=== PATIENT | male | born 1995 | race Asian ===

== ENCOUNTER 2018-04-10 09:50 | Emergency (ER) | payer SELFPAY ==
[~2018-04-10] VITALS: Ht 170.2 cm; Wt 81.8 kg
[2018-04-10 11:13] VITALS: BP 119/68
== END 2018-04-10 11:18 | disposition home or self-care (01) ==
LOC: EMS 09:51
DX: L30.9 Dermatitis, unspecified (principal); J45.909 Unspecified asthma, uncomplicated

== ENCOUNTER 2018-04-11 08:42 | Emergency (ER) | payer SELFPAY ==
[~2018-04-11] VITALS: Ht 170.2 cm; Wt 68.2 kg
[2018-04-11 08:48] VITALS: BP 148/74
== END 2018-04-11 10:41 | disposition home or self-care (01) ==
LOC: EMS 08:43
DX: L30.9 Dermatitis, unspecified (principal); J45.909 Unspecified asthma, uncomplicated

== ENCOUNTER 2018-06-04 12:31 | Emergency (ER) | payer SELFPAY ==
[~2018-06-04] VITALS: Ht 170.2 cm; Wt 77.3 kg
[2018-06-04 13:30] VITALS: BP 128/88
[2018-06-04] MEDS ORDERED: PredniSONE 20 MG TABLET PO ONE (13:30)
== END 2018-06-04 13:45 | disposition home or self-care (01) ==
LOC: EMS 12:32
DX: L30.9 Dermatitis, unspecified (principal); R03.0 Elevated blood-pressure reading, without diagnosis of hypertension; J45.909 Unspecified asthma, uncomplicated
CPT/HCPCS: 99283; J7512

== ENCOUNTER 2018-07-13 09:35 | Emergency (ER) | payer SELFPAY ==
[~2018-07-13] VITALS: Ht 170.2 cm; Wt 92.5 kg
[2018-07-13 11:13] VITALS: BP 121/93
[2018-07-13] MEDS ORDERED: DEXAMETHASONE SOD PHOS 4 MG/ML 5 ML VIAL IM ONE (11:30)
== END 2018-07-13 11:36 | disposition home or self-care (01) ==
LOC: EMS 09:38
DX: H10.9 Unspecified conjunctivitis (principal); L30.9 Dermatitis, unspecified; J45.909 Unspecified asthma, uncomplicated; F17.210 Nicotine dependence, cigarettes, uncomplicated
CPT/HCPCS: 96372; 99283; J1100

== ENCOUNTER 2019-06-15 09:11 | Emergency (ER) | payer MEDICAID ==
[~2019-06-15] VITALS: Ht 170.2 cm; Wt 84.1 kg
[2019-06-15 10:32] VITALS: BP 129/81
== END 2019-06-15 11:20 | disposition home or self-care (01) ==
LOC: EMS 09:17
DX: L30.9 Dermatitis, unspecified (principal); F17.210 Nicotine dependence, cigarettes, uncomplicated; J45.909 Unspecified asthma, uncomplicated
CPT/HCPCS: 99406

== ENCOUNTER 2019-12-03 15:37 | Emergency (ER) | payer MEDICAID ==
[~2019-12-03] VITALS: Ht 170.2 cm; Wt 84.1 kg
[2019-12-03] MEDS ORDERED: DEXAMETHASONE SOD PHOS 4 MG/ML 5 ML VIAL IM ONE (16:30)
[2019-12-03 16:40] VITALS: BP 141/84
== END 2019-12-03 16:54 | disposition home or self-care (01) ==
LOC: EMS 15:37
DX: L30.9 Dermatitis, unspecified (principal); J45.909 Unspecified asthma, uncomplicated; F12.90 Cannabis use, unspecified, uncomplicated; F17.210 Nicotine dependence, cigarettes, uncomplicated
CPT/HCPCS: 96372; 99283; J1100

== ENCOUNTER 2020-03-08 13:02 | Emergency (ER) | payer MEDICAID ==
[~2020-03-08] VITALS: Ht 170.2 cm; Wt 81.8 kg
[2020-03-08] MEDS ORDERED: PredniSONE 20 MG TABLET PO ONE (13:45)
[2020-03-08 15:00] VITALS: BP 129/79
== END 2020-03-08 15:18 | disposition home or self-care (01) ==
LOC: EMS 13:05
DX: L30.9 Dermatitis, unspecified (principal); F17.210 Nicotine dependence, cigarettes, uncomplicated; F12.90 Cannabis use, unspecified, uncomplicated
CPT/HCPCS: 99283; J7512

== ENCOUNTER 2020-10-12 04:45 | Emergency (ER) | payer MEDICAID ==
[~2020-10-12] VITALS: Ht 170.2 cm; Wt 86.4 kg
[2020-10-12 04:55] VITALS: BP 124/75
== END 2020-10-12 07:35 | disposition left against medical advice (07) ==
LOC: EMS 04:46
DX: L30.9 Dermatitis, unspecified (principal); Z53.21 Procedure and treatment not carried out due to patient leaving prior to being seen by health care provider

== ENCOUNTER 2020-10-18 01:16 | Emergency (ER) | payer MEDICAID ==
[~2020-10-18] VITALS: Ht 170.2 cm; Wt 86.4 kg
[2020-10-18 01:25] VITALS: BP 121/86
[2020-10-18] MEDS ORDERED: BENZONATATE 100 MG CAPSULE PO ONE (03:30)
[2020-10-18] MEDS ORDERED: PredniSONE 20 MG TABLET PO ONE (03:30)
[2020-10-18] MEDS ORDERED: HYDROCORTISONE 1% 30 GM CREAM TP ONE (03:30)
== END 2020-10-18 03:45 | disposition home or self-care (01) ==
LOC: EMS 01:16
DX: L20.9 Atopic dermatitis, unspecified (principal); J45.909 Unspecified asthma, uncomplicated; F12.90 Cannabis use, unspecified, uncomplicated; Z91.010 Allergy to peanuts; Z91.013 Allergy to seafood
CPT/HCPCS: 99284; J7512

== ENCOUNTER 2021-08-14 17:36 | Emergency (ER) | payer MEDICAID ==
[~2021-08-14] VITALS: Ht 170.2 cm; Wt 77.3 kg
[2021-08-14 17:43] VITALS: BP 116/64
[2021-08-14] MEDS ORDERED: PRED-554 PO (18:27)
[2021-08-14] MEDS ORDERED: HYDR-4527 PO (18:27)
[2021-08-14] MEDS ORDERED: TRI115O TP (18:27)
[2021-08-14] MEDS ORDERED: CEPH-558 PO (18:27)
== END 2021-08-14 19:05 | disposition home or self-care (01) ==
LOC: EMS 17:37
DX: L20.9 Atopic dermatitis, unspecified (principal); J45.909 Unspecified asthma, uncomplicated; F12.90 Cannabis use, unspecified, uncomplicated; Z88.8 Allergy status to other drugs, medicaments and biological substances
CPT/HCPCS: 99281; Z7502

== ENCOUNTER 2021-12-13 11:45 | Emergency (ER) | payer MEDICAID ==
[~2021-12-13] VITALS: Ht 170.2 cm; Wt 81.8 kg
[~2021-12-13 11:45] MED LIST: CEPH-558 PO; HYDR-4527 PO; PRED-554 PO; TRI115O TP
[2021-12-13] MEDS ORDERED: KETOROLAC TROMETHAMINE 30 MG/ML VIAL IVP ONE (12:30)
[2021-12-13] MEDS ORDERED: DiphenhydrAMINE HCL 50 MG/ML VIAL IVP ONE (12:30)
[2021-12-13 12:56] LABS: BASOPHILS % (AUTO) 1.1 % (0.0-2.0); EOSINOPHILS % (AUTO) 0.2 % (1.0-6.0); HEMATOCRIT 46.9 % (41-53); HEMOGLOBIN 15.7 g/dL (13.5-17.5); LYMPHOCYTES % (AUTO) 5.8 % (22.0-44.0); MEAN CORPUSCULAR HEMOGLOBIN 30.3 pg (26.0-34.0); MEAN CORPUSCULAR HGB CONC 33.4 G/dL (31.0-37.0); MEAN CORPUSCULAR VOLUME 91 fL (80-100); MONOCYTES # (AUTO) 1.3 K/uL (0.1-1.0); MONOCYTES % (AUTO) 7.8 % (2.0-9.0); NEUTROPHILS # (AUTO) 14.4 K/uL (1.8-7.7); NEUTROPHILS % (AUTO) 85.1 % (40.0-70.0); PLATELET COUNT (AUTO) 294 K/uL (150-450); RED BLOOD CELL COUNT(AUTO) 5.17 MIL/uL (4.50-5.90); RED CELL DISTRIBUTION WIDTH 12.1 % (11.5-14.5)
[2021-12-13] MEDS ORDERED: IOHEXOL 350 MG/ML 100 ML VIAL ONE (13:00)
[2021-12-13] MEDS ORDERED: SODIUM CHLORIDE 0.9% 100 ML ONE (13:01)
[2021-12-13 13:06] LABS: ANION GAP 6 mmol/L (8-16); CALCIUM, TOTAL 9.5 mg/dL (8.8-10.5); CARBON DIOXIDE 28 mmol/L (22-29); CHLORIDE 99 mmol/L (98-107); GLOMERULAR FILTR. RATE CALC > 60 mL/min (>60); GLUCOSE,RANDOM 98 mg/dL (70-110); POTASSIUM 3.6 mmol/L (3.5-5.1); SODIUM SERUM 133 mmol/L (136-145); UREA NITROGEN, BLOOD 10 mg/dL (7-18)
[2021-12-13 13:11] LABS: ALANINE AMINOTRANSFERASE 54 U/L (12-78); ALBUMIN 4.1 g/dL (3.4-5.0); ALKALINE PHOSPHATASE 78 U/L (46-116); ASPARTATE AMINOTRANSFERASE 23 U/L (15-37); BILIRUBIN,TOTAL 0.9 mg/dL (0.1-1.0); C-REACTIVE PROTEIN QUANT 11.53 mg/dL (0.00-0.30); TOTAL PROTEIN, SERUM 8.5 g/dL (6.4-8.2)
[2021-12-13 14:04] LABS: ERYTHROCYTE SEDIMENTATION RATE 20 MM/HR (0-15)
[2021-12-13] MEDS ORDERED: VANCOMYCIN 1GM/WATER(PEG/NADA) 200 ML IV ONE (14:45)
[2021-12-13] MEDS ORDERED: IBUP-2070 PO (16:06)
[2021-12-13] MEDS ORDERED: CLIN-26 PO (16:06)
[2021-12-13 16:28] VITALS: BP 121/83
== END 2021-12-13 17:35 | disposition home or self-care (01) ==
LOC: EMS 11:48
DX: H60.12 Cellulitis of left external ear (principal); L30.9 Dermatitis, unspecified; Z91.010 Allergy to peanuts; Z91.013 Allergy to seafood
CPT/HCPCS: 99285; 70460; 96365; 96375; 80053; 85025; 85651; 86140; 87040; 36415; 70491; J1200; J1885; Q9967; J7050

== ENCOUNTER 2022-03-31 14:00 | Emergency (ER) | payer MEDICAID ==
[~2022-03-31] VITALS: Ht 170.2 cm; Wt 81.0 kg
[~2022-03-31 14:00] MED LIST changes: +CLIN-26 PO; +IBUP-1492 PO
[2022-03-31 14:11] VITALS: BP 157/92
[2022-03-31] MEDS ORDERED: TRI115O TP (14:36)
== END 2022-03-31 14:54 | disposition still patient (30) ==
LOC: EMS 14:03
DX: Z76.0 Encounter for issue of repeat prescription (principal); H60.542 Acute eczematoid otitis externa, left ear; Z91.010 Allergy to peanuts; Z91.013 Allergy to seafood
CPT/HCPCS: 99283; Z7502

== ENCOUNTER 2022-11-13 14:08 | Emergency (ER) | payer MEDICAID ==
[~2022-11-13] VITALS: Ht 170.2 cm; Wt 97.7 kg
[2022-11-13 14:13] VITALS: TEMP 97.6
[2022-11-13] MEDS ORDERED: PRED-554 PO (14:55)
[2022-11-13] MEDS ORDERED: CEPH-558 PO (14:55)
[2022-11-13] MEDS ORDERED: TRI115O TP (14:55)
[2022-11-13] MEDS ORDERED: PredniSONE 20 MG TABLET PO ONE (15:00)
[2022-11-13] MEDS ORDERED: CEPHALEXIN MONOHYDRATE 500 MG CAPSULE PO ONE (15:00)
[2022-11-13 16:05] VITALS: BP 130/84; PULSE 104; RESP 16
== END 2022-11-13 16:58 | disposition home or self-care (01) ==
LOC: EMS 14:10
DX: T81.89XA Other complications of procedures, not elsewhere classified, initial encounter (principal); L20.9 Atopic dermatitis, unspecified; L30.9 Dermatitis, unspecified
CPT/HCPCS: 99283; J7512

== ENCOUNTER 2023-04-13 21:11 | Inpatient (IN) | payer MEDICAID ==
[~2023-04-13] VITALS: Ht 170.2 cm; Wt 97.5 kg
[~2023-04-13 21:11] MED LIST changes: -CLIN-26 PO; -HYDR-4527 PO; -IBUP-1492 PO
[2023-04-13 21:40] VITALS: BP 139/75; PULSE 82; RESP 18; TEMP 98.7
[2023-04-13] MEDS ORDERED: LORazepam 2 MG TABLET PO PRN (23:30)
[2023-04-13] MEDS ORDERED: HALOPERIDOL 5 MG TABLET PO PRN (23:30)
[2023-04-13 23:31] LABS: GLUCOMETER DEV NAME(LOC) POC.BV; POC SARS-COV2 AG, FIA NEGATIVE (NEGATIVE)
[2023-04-14 00:42] VITALS: BP 147/90; PULSE 102; RESP 18; TEMP 98.2; O2SAT 97
[2023-04-14] MEDS: ZOLPIDEM TARTRATE 10 MG TABLET PO PRN (01:05)
[2023-04-14] MEDS ORDERED: INFLUENZA VIRUS VACCINE QVS 2023-24 (6MO+)/PF 60 MCG/0.5 ML SYRINGE IM. ONE (02:15)
[2023-04-14] MEDS ORDERED: TRIAMCINOLONE 0.5% 15 GM OINTMENT TP PRN (07:00)
[2023-04-14 08:17] VITALS: BP 121/76; PULSE 94; RESP 17; TEMP 96.9; O2SAT 98
[2023-04-14 08:26] LABS: BASOPHILS % (AUTO) 0.7 % (0.0-2.0); EOSINOPHILS % (AUTO) 4.3 % (1.0-6.0); HEMATOCRIT 47.3 % (41-53); HEMOGLOBIN 16.2 g/dL (13.5-17.5); LYMPHOCYTES # (AUTO) 2.7 K/uL (1.0-4.8); LYMPHOCYTES % (AUTO) 25.8 % (22.0-44.0); MEAN CORPUSCULAR HEMOGLOBIN 30.6 pg (26.0-34.0); MEAN CORPUSCULAR HGB CONC 34.2 G/dL (31.0-37.0); MEAN CORPUSCULAR VOLUME 90 fL (80-100); MONOCYTES # (AUTO) 0.7 K/uL (0.1-1.0); NEUTROPHILS # (AUTO) 6.5 K/uL (1.8-7.7); NEUTROPHILS % (AUTO) 62.2 % (40.0-70.0); PLATELET COUNT (AUTO) 329 K/uL (150-450); RED BLOOD CELL COUNT(AUTO) 5.29 MIL/uL (4.50-5.90); RED CELL DISTRIBUTION WIDTH 12.6 % (11.5-14.5); WHITE BLOOD COUNT (AUTO) 10.4 K/uL (4.5-11.0)
[2023-04-14 08:57] LABS: ALANINE AMINOTRANSFERASE 53 U/L (12-78); ALBUMIN 3.9 g/dL (3.4-5.0); ALKALINE PHOSPHATASE 69 U/L (46-116); ANION GAP 11 mmol/L (8-16); ASPARTATE AMINOTRANSFERASE 23 U/L (15-37); BILIRUBIN,TOTAL 0.6 mg/dL (0.1-1.0); CALCIUM, TOTAL 9.2 mg/dL (8.8-10.5); CARBON DIOXIDE 25 mmol/L (22-29); CHLORIDE 101 mmol/L (98-107); CHOL/HDL RATIO 3.2 (4.2-7.3); CHOLESTEROL 120 mg/dL (131-200); CREATININE 0.89 mg/dL (0.60-1.30); FREE T4 (FREE THYROXINE) 1.13 ng/dL (0.76-1.46); GLOMERULAR FILTR. RATE CALC > 60 mL/min (>60); GLUCOSE,RANDOM 116 mg/dL (70-110); HDL CHOLESTEROL 38 mg/dL (40-60); LDL CHOL (CALC.) 61 mg/dL (0-130); POTASSIUM 3.6 mmol/L (3.5-5.1); SODIUM SERUM 137 mmol/L (136-145); THYROID STIMULATING HORMONE 4.56 uIU/mL (0.36-3.74); TOTAL PROTEIN, SERUM 7.5 g/dL (6.4-8.2); TRIGLYCERIDES 104 mg/dL (15-150); UREA NITROGEN, BLOOD 14 mg/dL (7-18)
[2023-04-14 08:59] LABS: APPEARANCE,URINE CLEAR (CLEAR); BILIRUBIN,URINE NEGATIVE (NEGATIVE); COLOR,URINE LIGHT YELLOW (YELLOW); GLUCOSE, URINE (UA) NEGATIVE (NEGATIVE); KETONES,URINE NEGATIVE (NEGATIVE); LEUKOCYTE ESTERASE ,URINE NEGATIVE (NEGATIVE); NITRATE,URINE NEGATIVE (NEGATIVE); OCCULT BLOOD,URINE NEGATIVE (NEGATIVE); PH,URINE 6.5 (5.0-8.0); PH,URINE DRUG SCREEN 6.5 (5.0-8.0); PROTEIN,URINE NEGATIVE (NEGATIVE); SPECIFIC GRAVITIY, URINE 1.026 (1.003-1.030); UROBILINOGEN,URINE <=1.0 mg/dL (<=1.0)
[2023-04-14 09:10] LABS: ALCOHOL, URINE DRUG SCREEN NEGATIVE (NEGATIVE); AMPHET/METH SCREEN,URINE NEGATIVE (NEGATIVE); BARBITURATE SCREEN, URINE NEGATIVE (NEGATIVE); BENZODIAZEPINES SCREEN,URINE NEGATIVE (NEGATIVE); CANNABINOID SCREEN,URINE NEGATIVE (NEGATIVE); COCAINE SCREEN,URINE NEGATIVE (NEGATIVE); METHADONE SCREEN, URINE NEGATIVE (NEGATIVE); OPIATE SCREEN,URINE NEGATIVE (NEGATIVE); PHENCYCLIDINE SCREEN,URINE NEGATIVE (NEGATIVE)
[2023-04-14] MEDS: NICOTINE 14 MG/24 HOUR PATCH TD PRN (09:32)
[2023-04-14] MEDS: SERTRALINE HCL 50 MG TABLET PO SCH (11:18)
[2023-04-14] MEDS ORDERED: MAGNESIUM HYDROXIDE SUSPENSION 30 ML UDCUP PO PRN (13:45)
[2023-04-14] MEDS ORDERED: CloNIDine HCL 0.1 MG TABLET PO PRN (13:45)
[2023-04-14] MEDS ORDERED: PETROLATUM,WHITE 28 GM JELLY TP PRN (13:45)
[2023-04-14] MEDS ORDERED: MAG HYDROX/ALUMINUM HYD/SIMETH ES 30 ML SUSPENSION UDCUP PO PRN (13:45)
[2023-04-14] MEDS ORDERED: NICOTINE 14 MG/24 HOUR PATCH TD PRN (13:45)
[2023-04-14] MEDS ORDERED: DOCUSATE SODIUM 100 MG CAPSULE PO PRN (13:45)
[2023-04-14] MEDS ORDERED: ONDANSETRON HCL 4 MG TABLET PO PRN (13:45)
[2023-04-14] MEDS ORDERED: ACETAMINOPHEN 325 MG TABLET PO PRN (13:45)
[2023-04-14] MEDS ORDERED: IBUPROFEN 400 MG TABLET PO PRN (13:45)
[2023-04-14] MEDS ORDERED: ALBUTEROL SULFATE HFA 90 MCG/PUFF 8 GM INHALER IH PRN (13:45)
[2023-04-14] MEDS ORDERED: GuaiFENesin/D-METHORPHAN [SUGAR-FREE] 200-20MG/10 ML SYRUP UDCUP PO PRN (13:45)
[2023-04-14] MEDS ORDERED: LOPERAMIDE HCL 2 MG CAPSULE PO PRN (13:45)
[2023-04-15] MEDS ORDERED: TRIAMCINOLONE 0.1% 15 GM OINTMENT TP SCH (09:00)
== END 2023-04-14 18:25 | disposition left against medical advice (07) | DRG 751 ==
LOC: B2S 23:53
PROVIDERS: ADMIT Psychiatry & Neurology Psychiatry; ATTEND Psychiatry & Neurology Psychiatry
PROC: GZHZZZZ Group Psychotherapy (ICD-10-PCS; principal; 2023-04-14)
DX: F33.2 Major depressive disorder, recurrent severe without psychotic features (principal); R45.851 Suicidal ideations; Z20.822 Contact with and (suspected) exposure to COVID-19; T42.4X2A Poisoning by benzodiazepines, intentional self-harm, initial encounter; Z79.899 Other long term (current) drug therapy; Z91.010 Allergy to peanuts; Z91.018 Allergy to other foods; Z91.013 Allergy to seafood; Z91.51 Personal history of suicidal behavior; Y92.89 Other specified places as the place of occurrence of the external cause
CPT/HCPCS: 80053; 80061; 80307; 81003; 84439; 84443; 85025; 90686